=== PATIENT | female | born 2000 | race African-American/Black ===

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

== ENCOUNTER 2021-03-12 17:05 | Emergency (ER) | payer MEDICAID, OTHER ==
[~2021-03-12] VITALS: Ht 162.6 cm; Wt 52.6 kg
[2021-03-12 17:10] VITALS: BP_SYST 132
[2021-03-12 18:05] VITALS: BP_SYST 132
== END 2021-03-12 18:05 | disposition home or self-care (01) ==
LOC: SED 17:05
DX: L25.9 Unspecified contact dermatitis, unspecified cause (principal)
CPT/HCPCS: 99281

== ENCOUNTER 2021-04-07 23:41 | Emergency (ER) | payer OTHER ==
[~2021-04-07] VITALS: Ht 162.6 cm; Wt 54.4 kg
[2021-04-08 00:08] VITALS: BP_SYST 118
--- NOTE | 2021-04-08 00:08 | NUR ---
PATIENT TRIAGED AND PLACED OUTSIDE IN TENT 1. VSS. NO DISTRESS NOTED AT THIS TIME.
--- NOTE | 2021-04-08 00:17 | NUR ---
DR. ALMENDAREZ AT BEDSIDE FOR EVALUATION.
--- NOTE | 2021-04-08 00:20 | NUR ---
Patient to ER bed 8 to gown for evaluation. Side rails up.
--- NOTE | 2021-04-08 00:30 | NUR ---
PATIENT AAOX4 AND AMBULATORY FROM HOME C/O FLU LIKE SYMPTOMS X ACOUPLE DAYS. PER PATIENT AT HOME TEMP WAS 104 AND HAS BEEN TAKING IBUPROFEN WITH NO RELIEF. AT HOME SYMPTOMS INCLUDED N/V, GENERALIZED BODY ACHES, WITH HEADACHES. PATIENT IS NON- COVID VACCINATED. RECENTLY HAD EXPOSURE TO MULTIPLE FAMILY WITH COVID. VSS. DENIES ANY SOB OR CHEST PAIN.
--- NOTE | 2021-04-08 00:40 | NUR ---
# 20 gauge angiocath placed to RIGHT AC. Use of asceptic technique. Opsite placed over site. Blood return noted. Blood for lab drawn from site. Flushed with 10 cc of normal saline. No evidence of infiltration noted. Patient tolerated well.
[2021-04-08 00:49] LABS: INFLUENZA A&B ANTIGEN SCREEN NEGATIVE FOR A & B (NEGATIVE)
[2021-04-08 00:56] LABS: BASOPHILS # (AUTO) 0.1 K/uL (0.0-0.2); BASOPHILS % (AUTO) 1.3 % (0.0-2.0); EOSINOPHILS % (AUTO) 1.1 % (0.0-4.0); HEMATOCRIT 44.3 % (36-48); HEMOGLOBIN 14.9 g/dL (12.0-16.0); LYMPHOCYTES # (AUTO) 1.2 K/uL (1.0-5.5); LYMPHOCYTES % (AUTO) 26.5 % (20.5-51.5); MEAN CORPUSCULAR HEMOGLOBIN 30 pg (27-31); MEAN CORPUSCULAR HGB CONC 34 % (32-36); MEAN CORPUSCULAR VOLUME 89 fL (79.0-98.0); MONOCYTES # (AUTO) 0.6 K/uL (0.0-1.0); MONOCYTES % (AUTO) 13.2 % (1.7-9.3); NEUTROPHILS # (AUTO) 2.6 K/uL (1.8-7.7); NEUTROPHILS % (AUTO) 57.9 % (40.0-70.0); PLATELET COUNT (AUTO) 217 K/uL (130-430); RED BLOOD CELL COUNT(AUTO) 4.99 MIL/uL (4.2-6.2); RED CELL DISTRIBUTION WIDTH 14.1 % (9.0-15.0); WHITE BLOOD COUNT (AUTO) 4.5 K/uL (4.8-10.8)
[2021-04-08 01:00] LABS: CALCIUM 8.5 mg/dL (8.4-11.0); CREATININE 0.78 mg/dL (0.55-1.30); POTASSIUM 3.9 mmol/L (3.5-5.1)
[2021-04-08] MEDS: cefTRIAXone 1 GM IVPB PREMIX 50 ML IV ONE (01:01)
[2021-04-08] MEDS: NS 1000 ML IV.SOLN IV ONE (01:01)
[2021-04-08] MEDS: ACETAMINOPHEN 500 MG TABLET PO ONE (01:01)
[2021-04-08 01:04] LABS: ALBUMIN 3.5 g/dL (3.4-4.8); TOTAL BILIRUBIN 0.6 mg/dL (0.0-1.0)
--- NOTE | 2021-04-08 01:44 | NUR ---
Medicated per MD orders. IVF infusing with no s/s of infiltration at this time. Will cont to monitor. PT TOLERATING WELL. MEDICATION GIVEN ORDERED. TEMP RECHECKED WITH 100.1
--- NOTE | 2021-04-08 02:30 | NUR ---
Patient resting quietly. No acute distress noted. Vital signs within normal range.
[2021-04-08] MEDS ORDERED: HYDR-3917 PO (04:13)
[2021-04-08] MEDS ORDERED: ONDA-8 TL (04:13)
[2021-04-08] MEDS ORDERED: NAPR-686 PO (04:13)
[2021-04-08 04:16] VITALS: BP_SYST 124
--- NOTE | 2021-04-08 04:17 | NUR ---
Patient given written and verbal discharge instructions and verbalizes understanding. DR. TANESHA POWELL MD discussed with patient the results and treatment provided. Patient in stable condition. ID arm band removed. IV catheter removed intact and dressing applied, no active bleeding. Rx of NORCO, ZOFRAN, NAPROXEN given. Patient educated on pain management and to follow up with PMD. Pain Scale 0/10. Opportunity for questions provided and answered. Medication side effect fact sheet provided.
== END 2021-04-08 04:17 | disposition home or self-care (01) ==
LOC: SED 23:41
DX: U07.1 COVID-19 (principal); R00.0 Tachycardia, unspecified
CPT/HCPCS: 36415; 80053; 83605; 84484; 85025; 86710; 87040; 87426; 93005; 96365; 99284; J0696

== ENCOUNTER 2022-12-29 15:12 | Emergency (ER) | payer MEDICAID, OTHER ==
[~2022-12-29 15:12] MED LIST: HYDR-3917 PO; NAPR-686 PO; ONDA-8 TL
[2022-12-29 15:41] VITALS: BP_SYST 133
[2022-12-29] MEDS ORDERED: ACETAMINOPHEN 325 MG TABLET PO ONE (15:45)
[2022-12-29] MEDS ORDERED: DICL20GE TP (17:46)
== END 2022-12-29 18:01 | disposition home or self-care (01) ==
LOC: SED 15:12
DX: S50.11XA Contusion of right forearm, initial encounter (principal); Z79.899 Other long term (current) drug therapy; W10.9XXA Fall (on) (from) unspecified stairs and steps, initial encounter; Y93.89 Activity, other specified; Y92.89 Other specified places as the place of occurrence of the external cause; Y99.8 Other external cause status
CPT/HCPCS: 36415; 73090; 84702; 99284